=== PATIENT | female | born 1985 | race Caucasian/White ===

== ENCOUNTER → 2016-10-03 | Outpatient (REF) | payer OTHER | LOC: M SFHCLERA 10:54 | PROVIDERS: ATTEND Physician Assistant | DX: R10.84 Generalized abdominal pain (principal) ==

== ENCOUNTER → 2019-03-21 | Outpatient (CLI) | payer BC, OTHER ==
--- NOTE | 2019-03-21 15:47 | REP ---
Obstetric sonography: History: Supervision of . Findings: Transabdominal scanning demonstrates a living intrauterine gestation. The embryonic pole measures 7 mm in crown-rump length. This corresponds with a gestational age estimate of 6 weeks 4 days. heart rate is recorded at 128 beats per minute. No gross anomaly is seen. No extrauterine abnormalities observed. Impression: Viable single intrauterine gestation at 6 weeks 4 days by crown-rump length. CARLENE by sonography November 10, 2019. No complication is identified. Electronically Signed by Srinath Seay MD 03/21/2019 05:37 P
== END ==
LOC: M RAD 11:46
PROVIDERS: ATTEND Nurse Practitioner Family
DX: Z36.89 Encounter for other specified antenatal screening (principal); Z3A.01 Less than 8 weeks gestation of pregnancy

== ENCOUNTER → 2019-09-18 | Outpatient (REF) | payer BC, MEDICAID | LOC: M SFHCLERA 16:42 | PROVIDERS: ATTEND Physician Assistant | DX: J02.9 Acute pharyngitis, unspecified (principal) ==

== ENCOUNTER → 2024-05-27 | Outpatient (REF) | payer BC | LOC: M LAB REF 14:51 | PROVIDERS: ATTEND Internal Medicine Endocrinology, Diabetes & Metabolism | DX: E04.2 Nontoxic multinodular goiter (principal) ==